=== PATIENT | female | born 1965 ===

== ENCOUNTER 2017-02-10 19:24 | Emergency (ER) | payer BC ==
[2017-02-10 19:32] VITALS: BP 151/89; PULSE 98; RESP 18; TEMP 98.8; O2SAT 100
--- NOTE | 2017-02-10 21:12 | ED PDOC ---
Upper Extremity Pain/Injury Time Seen by Provider: 02/10/17 21:01 Chief Complaint (Nursing): Upper Extremity Problem/Injury Chief Complaint (Provider): Right arm pain, neck pain History Per: Patient Onset/Duration Of Symptoms: Days (x multiple months) Current Symptoms Are (Timing): Better Additional Complaint(s): Miriam is a 51 y/o female who presents to the ED for evaluation of right arm pain, ongoing for several months. Patient states that pain radiates up and down her arm into the right side of her neck. Patient reports taking Tylenol and Aleve with some relief. She denies any associated trauma, injury, numbness, weakness, or tingling. Of note, patient is scheduled to see a new primary care physician on . PMD: None Past Medical History Reviewed: Historical Data, Nursing Documentation, Vital Signs Vital Signs: Last Vital Signs Temp 98.8 F 02/10/17 19:29 Pulse 98 H 02/10/17 19:29 Resp 18 02/10/17 19:29 BP 151/89 H 02/10/17 19:29 Pulse Ox 100 02/10/17 19:29 - Medical History PMH: No Chronic Diseases - Family History Family History: States: No Known Family Hx - Living Arrangements Living Arrangements: With Family - Social History Current smoker - smoking cessation education provided: No Alcohol: None Drugs: Denies - Home Medications Home Medications: Ambulatory Orders Medication Instructions Recorded Oseltamivir Phosphate [Tamiflu] 75 mg PO BID #10 capsule 07/03/15 Cyclobenzaprine [Cyclobenzaprine 10 mg PO TID PRN #20 tab 02/10/17 HCl] Naproxen [Naprosyn] 500 mg PO BID #20 tab 02/10/17 - Allergies Allergies/Adverse Reactions: Allergies Allergy/AdvReac Type Severity Reaction Status Date / Time No Known Allergies Allergy Verified 07/03/15 09:39 Review of Systems ROS Statement: Except As Marked, All Systems Reviewed And Found Negative Cardiovascular: Negative for: Chest Pain Respiratory: Negative for: Cough Gastrointestinal: Negative for: Nausea, Vomiting Musculoskeletal: Positive for: Neck Pain, Arm Pain Neurological: Negative for: Weakness, Numbness Physical Exam - Reviewed Nursing Documentation Reviewed: Yes Vital Signs Reviewed: Yes - Physical Exam Appears: Positive for: Well, Non-toxic, No Acute Distress Head Exam: Positive for: ATRAUMATIC, NORMAL INSPECTION, NORMOCEPHALIC Skin: Positive for: Normal Color. Negative for: Rash Eye Exam: Positive for: Normal appearance Neck: Positive for: Pain On Movement Of Neck (with tenderness to the right lateral neck) Cardiovascular/Chest: Positive for: Regular Rate, Rhythm Respiratory: Positive for: Normal Breath Sounds Back: Negative for: Vertebral Tenderness Extremity: Positive for: Normal ROM (Full ROM of right arm with no neurological deficits), Capillary Refill (< 2 sec), Other (strong right hand cloth drier). Negative for: Deformity Neurologic/Psych: Positive for: Alert, Oriented. Negative for: Motor/Sensory Deficits - ECG O2 Sat by Pulse Oximetry: 100 (RA) Pulse Ox Interpretation: Normal - Other Rad C spine x-ray X-Ray: Interpreted by Me, Viewed By Me X-Ray Interpretation: no fx, no dis Medical Decision Making Medical Decision Makin51 year old female with pain to right arm and right side of neck for 6 months Time: 21:07 Plan: --Ordered X-Ray Cervical Spine --Patient offered pain medication but she declined Patient is aware of x-ray results, all questions answered. Rx naprosyn and flexeril given, patient was referred to ortho tong setter for follow up. Scribe Attestation: Documented by Yashira Deleon, acting as a scribe for Cathy Jimenez PA-C Provider Scribe Attestation: All medical record entries made by the Scribe were at my direction and personally dictated by me. I have reviewed the chart and agree that the record accurately reflects my personal performance of the history, physical exam, medical decision making, and the department course for this patient. I have also personally directed, reviewed, and agree with the discharge instructions and disposition. Disposition - Clinical Impression Clinical Impression: Neck pain, Cervical radiculopathy - Patient ED Disposition Is Patient to be Admitted: No Counseled Patient/Family Regarding: Studies Performed, Diagnosis, Need For Followup, Rx Given - Disposition Referrals: Annmarie Sapp MD [Staff Provider] - Disposition: Routine/Home Disposition Time: 21:31 Condition: STABLE Additional Instructions: Take rx meds as directed. Follow up with primary care doctor or with orthopedist for any persistent symptoms. Prescriptions: Cyclobenzaprine [Cyclobenzaprine HCl] 10 mg PO TID PRN #20 tab PRN Reason: Muscle Spasm Naproxen [Naprosyn] 500 mg PO BID #20 tab Instructions: Cervical Radiculopathy (ED) Forms: [employer] (Mongolian)
--- NOTE | 2017-02-11 09:56 | RAD ---
PROCEDURE: Cervical Spine Radiographs. HISTORY: Pain. COMPARISON: None. FINDINGS: BONES: Are reversal of the mid cervical curvature. No fracture. Dens Intact. DISC SPACES: Normal. SOFT TISSUES: Normal. No prevertebral soft tissue swelling. OTHER FINDINGS: Mild degenerative stenosis of the bilateral C6 neural foramina, right greater than left. IMPRESSION: No fracture or spondylolisthesis appreciated. Mild reversal cervical curvature. Mild degenerative stenosis of the left greater the right C6 neural foramina.
== END 2017-02-10 22:49 | disposition home or self-care (01) ==
LOC: H.ER 19:24
DX: M54.12 Radiculopathy, cervical region (principal); M48.02 Spinal stenosis, cervical region

== ENCOUNTER 2018-01-15 13:20 | Emergency (ER) | payer BC ==
--- NOTE | 2018-01-15 14:38 | ED PDOC ---
Lower Extremity Pain/Injury Time Seen by Provider: 01/15/18 13:26 Chief Complaint (Nursing): Lower Extremity Problem/Injury Chief Complaint (Provider): Right Foot Pain History Per: Patient History/Exam Limitations: no limitations Onset/Duration Of Symptoms: Days Current Symptoms Are (Timing): Still Present Additional Complaint(s): 52 year old female presents to the ED for an evaluation of her right foot pain onset for 4 days. Patient reports she slipped in her basement on the wet floor and twisted her foot. She has pain upon ambulation and took Tylenol at 10am without any relief. PMD: No Family Provider Past Medical History Reviewed: Historical Data, Nursing Documentation, Vital Signs Vital Signs: Last Vital Signs Temp 98.4 F 01/15/18 13:27 Pulse 84 01/15/18 13:27 Resp 16 01/15/18 13:27 BP 135/77 01/15/18 13:27 Pulse Ox 100 01/15/18 13:27 - Medical History PMH: No Chronic Diseases - Family History Family History: States: Unknown Family Hx - Home Medications Home Medications: Ambulatory Orders Medication Instructions Recorded Oseltamivir Phosphate [Tamiflu] 75 mg PO BID #10 capsule 07/03/15 Cyclobenzaprine [Cyclobenzaprine 10 mg PO TID PRN #20 tab 02/10/17 HCl] Naproxen [Naprosyn] 500 mg PO BID #20 tab 02/10/17 Ibuprofen [Motrin] 600 mg PO Q6 #20 tab 01/15/18 - Allergies Allergies/Adverse Reactions: Allergies Allergy/AdvReac Type Severity Reaction Status Date / Time Penicillins Allergy RASH Verified 01/15/18 13:27 Review of Systems ROS Statement: Except As Marked, All Systems Reviewed And Found Negative Musculoskeletal: Positive for: Leg Pain (right) Psych: Negative for: Suicidal ideation (homicidal ideation ) Physical Exam - Reviewed Nursing Documentation Reviewed: Yes Vital Signs Reviewed: Yes - Physical Exam Appears: Positive for: Well, Non-toxic, No Acute Distress Head Exam: Positive for: ATRAUMATIC, NORMAL INSPECTION, NORMOCEPHALIC Skin: Positive for: Normal Color, Warm, Dry Eye Exam: Positive for: Normal appearance Extremity: Positive for: Normal ROM. Negative for: Tenderness, Pedal Edema, Deformity, Swelling Neurologic/Psych: Positive for: Alert, Oriented (x3) - ECG O2 Sat by Pulse Oximetry: 100 (RA) Pulse Ox Interpretation: Normal Medical Decision Making Medical Decision Making: Time: 1350 Initial Impression: right foot pain Initial Plan: --Motrin 600mg --Foot Right 3 Views [RAD] --Reevaluation Time: 1441 PROCEDURE: Right Foot Radiographs HISTORY: Atraumatic pain COMPARISON: None available. FINDINGS: BONES: No acute displaced fracture. JOINTS: No dislocation. SOFT TISSUES: Unremarkable. No evidence of radiopaque foreign body. OTHER FINDINGS: None. IMPRESSION: No acute displaced fracture, dislocation, or significant joint effusion identified. If symptoms persist, or if there is continued clinical concern, x-ray follow-up in 7-10 days should be considered. Scribe Attestation: Documented by Mita Wen, acting as a scribe for Cathy Garcia PA-C. Provider Scribe Attestation: All medical record entries made by the Scribe were at my direction and personally dictated by me. I have reviewed the chart and agree that the record accurately reflects my personal performance of the history, physical exam, medical decision making, and the department course for this patient. I have also personally directed, reviewed, and agree with the discharge instructions and disposition. Disposition - Clinical Impression Clinical Impression: Foot pain - Patient ED Disposition Is Patient to be Admitted: No - Disposition Referrals: Podiatry Clinic [Outside] Disposition: Routine/Home Disposition Time: 15:45 Condition: STABLE Prescriptions: Ibuprofen [Motrin] 600 mg PO Q6 #20 tab Instructions: Foot Sprain (DC) Forms: [employer] (Chinese)
--- NOTE | 2018-01-15 14:43 | RAD ---
PROCEDURE: Right Foot Radiographs. HISTORY: Atraumatic pain COMPARISON: None available. FINDINGS: BONES: No acute displaced fracture. JOINTS: No dislocation. SOFT TISSUES: Unremarkable. No evidence of radiopaque foreign body. OTHER FINDINGS: None. IMPRESSION: No acute displaced fracture, dislocation, or significant joint effusion identified. If symptoms persist, or if there is continued clinical concern, x-ray follow-up in 7-10 days should be considered.
[2018-01-15 15:44] VITALS: BP 122/68; PULSE 76; RESP 18; TEMP 98
[2018-01-15 15:45] VITALS: O2SAT 100
== END 2018-01-15 15:42 | disposition home or self-care (01) ==
LOC: H.ER 13:20
DX: M79.671 Pain in right foot (principal)